=== PATIENT | male | born 1980 | race Caucasian/White ===

== ENCOUNTER 2022-06-11 19:38 | Emergency (ER) | payer SELFPAY ==
[~2022-06-11 19:38] MED LIST: FLEXERIL PO; NAPROSYN500 MG PO
[2022-06-12 02:16] VITALS: BP 00/00
== END 2022-06-12 02:16 | disposition left against medical advice (07) | DRG 951 ==
LOC: ED 19:38 → LWOBS 20:54 → ED 20:54 → LWOBS 06-12 02:16
DX: Z53.21 Procedure and treatment not carried out due to patient leaving prior to being seen by health care provider (principal)